=== PATIENT | female | born 1945 | race Caucasian/White ===

== ENCOUNTER 2018-09-22 10:50 | Inpatient (IN) | payer OTHER, MEDICARE ==
[~2018-09-22] VITALS: Ht 139.7 cm; Wt 86.2 kg
[~2018-09-22 10:50] MED LIST: CELE100C PO; CLOP75TA15 PO
--- NOTE | 2018-09-22 11:00 | NUR ---
PT DEDRICK FROM DAYCARE, C/O DIZZINESS AND WEAK, -KO, -CP, -SOB, PT IS AAOX3, NOT IN RESPIRATORY DISTRESS, KEPT RESTED AND COMFORTABLE, HOOKED TO MONITOR.
--- NOTE | 2018-09-22 11:10 | NUR ---
SEEN AND EXAMINED BY DR. GHOSH.
[2018-09-22] MEDS ORDERED: NITROGLYCERIN PACKET 1 GM PACKET ONE (11:22)
--- NOTE | 2018-09-22 11:28 | NUR ---
LABS DRAWNED AND SENT TO LAB. AWAITING RESULTS.
[2018-09-22] MEDS ORDERED: NITROGLYCERIN PACKET 1 GM PACKET TD ONE (11:30)
[2018-09-22 11:33] LABS: BASOPHILS # (AUTO) 0.1 /CMM (0.0-0.2); BASOPHILS % (AUTO) 1.2 % (0.0-2.0); EOSINOPHILS % (AUTO) 2.2 % (0.0-6.0); HEMATOCRIT 32 % (33-45); HEMOGLOBIN 10.7 g/dL (11.5-14.8); LYMPHOCYTES # (AUTO) 1.1 /CMM (0.8-4.8); LYMPHOCYTES % (AUTO) 17.2 % (20.0-44.0); MEAN CORPUSCULAR HGB CONC 34 g/dl (31.0-36.0); MEAN CORPUSCULAR VOLUME 86 fL (82-100); MONOCYTES # (AUTO) 0.4 /CMM (0.1-1.30); MONOCYTES % (AUTO) 5.9 % (2.0-12.0); NEUTROPHILS # (AUTO) 4.8 /CMM (1.8-8.9); NEUTROPHILS % (AUTO) 73.5 % (43.0-81.0); PLATELET COUNT (AUTO) 219 /CMM (150-450); RED BLOOD CELL COUNT(AUTO) 3.67 MIL/uL (4.0-5.2); WHITE BLOOD COUNT (AUTO) 6.5 K/uL (4.3-11.0)
[2018-09-22 11:45] LABS: CARBON DIOXIDE 31 mmol/L (21-32); CHLORIDE 100 mmol/L (98-107); POTASSIUM 3.9 mmol/L (3.5-5.1); SODIUM SERUM 135 mmol/L (136-145)
[2018-09-22 11:46] LABS: CALCIUM, SERUM 8.8 mg/dL (8.5-10.1); UREA NITROGEN, BLOOD 22 mg/dL (7-18)
[2018-09-22 11:55] LABS: ALANINE AMINOTRANSFERASE 18 U/L (12-78); ALKALINE PHOSPHATASE 93 U/L (46-116); ASPARTATE AMINOTRANSFERASE 10 U/L (15-37); BILIRUBIN,DIRECT 0.1 mg/dL (0.0-0.2); BILIRUBIN,TOTAL 0.5 mg/dL (0.2-1.0)
[2018-09-22 11:56] LABS: ALBUMIN 3.1 g/dL (3.4-5.0); TOTAL PROTEIN, SERUM 6.8 g/dL (6.4-8.2)
[2018-09-22 11:57] LABS: B-TYPE NATRIURETIC PEPTIDE 1279 PG/ML (0-125); GLUCOSE 414 mg/dL (74-106)
[2018-09-22] MEDS ORDERED: hydrALAZINE HCL IV 20 MG VIAL IV ONE (12:00)
[2018-09-22] MEDS ORDERED: hydrALAZINE HCL IV 20 MG VIAL ONE (12:03)
[2018-09-22] MEDS ORDERED: ASPIRIN 325 MG TABLET ONE (12:11)
[2018-09-22] MEDS ORDERED: INSULIN REGULAR, HUMAN 100 UNIT/ML 10 ML VIAL ONE (12:11)
[2018-09-22] MEDS ORDERED: FUROSEMIDE 20 MG/2 ML VIAL ONE (12:19)
[2018-09-22] MEDS ORDERED: ASPIRIN 325 MG TABLET PO ONE (12:30)
[2018-09-22] MEDS ORDERED: INSULIN REGULAR, HUMAN 100 UNIT/ML 10 ML VIAL IV ONE (12:30)
[2018-09-22] MEDS ORDERED: FUROSEMIDE 20 MG/2 ML VIAL IV ONE (12:30)
[2018-09-22] MEDS ORDERED: MELO-107 PO (12:50)
[2018-09-22] MEDS ORDERED: ACET-73 PO (12:50)
[2018-09-22] MEDS ORDERED: INSU100V10 SQ (12:50)
[2018-09-22] MEDS ORDERED: ATEN25TA PO (12:50)
[2018-09-22] MEDS ORDERED: FENO145T35 PO (12:50)
[2018-09-22] MEDS ORDERED: IBUP-2413 PO (12:50)
[2018-09-22] MEDS ORDERED: POTA8TAB8 PO (12:50)
[2018-09-22] MEDS ORDERED: LOPE-156 PO (12:50)
[2018-09-22] MEDS ORDERED: VALS1TAB54 PO (12:50)
[2018-09-22] MEDS ORDERED: ARIP10TA9 PO (12:50)
[2018-09-22] MEDS ORDERED: SITA100T PO (12:50)
[2018-09-22] MEDS ORDERED: CYAN500T4 PO (12:50)
[2018-09-22] MEDS ORDERED: ERGO500040 PO (12:50)
[2018-09-22] MEDS ORDERED: CARV12.52 PO (12:50)
[2018-09-22] MEDS ORDERED: MAG30ORA PO (12:50)
[2018-09-22] MEDS ORDERED: ATOR80TA PO (12:50)
[2018-09-22] MEDS ORDERED: NITR0.4T48 SL (12:50)
[2018-09-22] MEDS ORDERED: FURO20TA4 PO (12:50)
[2018-09-22] MEDS ORDERED: MECL-102 PO (12:50)
[2018-09-22] MEDS ORDERED: AMLO10TA7 PO (12:50)
[2018-09-22] MEDS ORDERED: ASPI-1169 PO (12:50)
[2018-09-22] MEDS ORDERED: OMEP1CAP25 PO (12:50)
[2018-09-22] MEDS ORDERED: NIAC500T2 PO (12:50)
[2018-09-22] MEDS ORDERED: CLOP75TA15 PO (12:54)
--- NOTE | 2018-09-22 12:55 | NUR ---
LEFT MESSAGE FOR DR STERLING
--- NOTE | 2018-09-22 13:47 | NUR ---
CALLED DR STERLING, WAS PAGED.
--- NOTE | 2018-09-22 14:11 | NUR ---
AWAITING ROOM FOR ADMISSION.
--- NOTE | 2018-09-22 14:12 | NUR ---
Unable to reach Dr. Lynch, [facility] group paged for admission.
--- NOTE | 2018-09-22 14:17 | NUR ---
PAGEAlex HERNANDEZ FOR ADMISSION OF THIS PATIENT
--- NOTE | 2018-09-22 14:34 | NUR ---
REPORT GIVEN TO SARA DUMONT FOR ILIA.
[2018-09-22 16:00] VITALS: BP 144/69
--- NOTE | 2018-09-22 16:15 | NUR ---
HOGSHEAD INSPECTOR NOTE RECEIVED PT. IN [facility] A&OX4. BREATHING UNLABORED ON ROOM AIR. PT. DENIES CHEST PAIN, BUT HAS NEW ONSET OF ABDOMINAL PAIN. VITALS WILL BE MEASURED. PT. WAS TRANSFERRED INTO BED SAFELY. NO NEW MD ORDERS GIVEN AT THIS TIME. INSTRUCTED PT. TO USE CALL LIGHT FOR ASSISTANCE. ALL NEEDS MET. WILL CONTINUE TO ASSESS AND MONITOR.
[2018-09-22 16:47] VITALS: BP 144/69
--- NOTE | 2018-09-22 18:00 | NUR ---
RN NOTES DISCUSSED WITH DR. STERLING PT. CONDITION, NEW ORDERS WERE GIVEN. MD WILL BE IN TO SEE PT. IN 1-2 HOURS.
[2018-09-22] MEDS ORDERED: MORPHINE SULFATE INJ 2 MG/ML DISP.SYRIN IV ONE (18:21)
[2018-09-22] MEDS ORDERED: MORPHINE SULFATE INJ 2 MG/ML DISP.SYRIN IV PRN (18:30)
[2018-09-22 18:50] LABS: AMYLASE 30 U/L (25-115); LIPASE 133 U/L (73-393)
[2018-09-22 18:54] LABS: CHOLESTEROL 264 mg/dL (<200); HDL CHOLESTEROL 35 mg/dL (40-60); LDL 166 mg/dL (0-99); TRIGLYCERIDES 356 mg/dL (30-150)
--- NOTE | 2018-09-22 19:30 | NUR ---
UPSCALE SECURITY OFFICER INITIAL NOTES Patient is awake, A/O x3, Divehi speaking, understand and speak Mozambican some. Stable oxygen saturation on RA. Sinus rhythm on the tele monitor HR 70. Abdomen rounded and firm, reports some discomfort, denies nausea, no vomiting. Home medication for review, will follow up with Dr. Phan. Maintained safety, will cont to monitor.
[2018-09-22 20:00] VITALS: BP 156/73
--- NOTE | 2018-09-22 20:01 | NUR ---
RN CLOSING NOTES PT. IS IN BED SITTING UP A&OX4. BREATHING UNLABORED ON ROOM AIR. PT. REPORTED ABDOMINAL PAIN HAS IMPROVED SINCE ARRIVING TO UNIT. PT. TOLERATED JELLO AND CRACKERS WELL. IV IS INTACT AND PATENT. NO S/S OF ACUTE DISTRESS. BED IS IN LOWEST, AND LOCKED POSITION. 2 SIDE RAILS UP, AND INSTRUCTED PT. TO USE CALL LIGHT FOR ASSISTANCE. NEW MD ORDERS WERE ADDED TO PPI. ENDORSED REPORT TO NURSE.
[2018-09-22 21:02] LABS: MAGNESIUM 1.6 mg/dL (1.8-2.4)
[2018-09-22] MEDS: BLOOD SUGAR DIAGNOSTIC 1 EACH STRIP IN SCH (21:41)
[2018-09-22] MEDS ORDERED: INSULIN DETEMIR 100 UNIT/ML CARTRIDGE SQ SCH (22:00)
[2018-09-22] MEDS ORDERED: INSULIN ASPART/LISPRO 100 UNIT/ML CARTRIDGE SQ ONE (22:00)
[2018-09-22] MEDS ORDERED: INSULIN LISPRO/ASPART 100 UNIT/ML CARTRIDGE SQ ONE (22:34)
[2018-09-22] MEDS ORDERED: INSULIN GLARGINE, 100 UNIT/ML CARTRIDGE SQ ONE (22:34)
[2018-09-22] MEDS: INSULIN GLARGINE, 100 UNIT/ML CARTRIDGE SQ SCH (22:41)
--- NOTE | 2018-09-22 22:42 | NUR ---
Elevated blood sugar 462mg/dl, notified Dr. Phan. Novolog 10mg SC x1 given, will reassess.
--- NOTE | 2018-09-22 23:17 | NUR ---
Low magnesium level 1.[address] Phan, ordered Magnesium 2gm IV daily x3 doses total of 6 grams IV. Repeat blood sugar 367mg/dl , is aware. Will cont to monitor.
[2018-09-22] MEDS: Magnesium 1GM/D5W 100ML PREMIX 100 ML IV SCH (23:29)
[2018-09-22] MEDS: ONDANSETRON HCL/PF 4 MG/2 ML VIAL IV PRN (23:56)
[2018-09-23] MEDS: MORPHINE SULFATE INJ 2 MG/ML DISP.SYRIN IV PRN ×3 (00:14→17:12)
[2018-09-23] MEDS: Magnesium 1GM/D5W 100ML PREMIX 100 ML IV SCH ×3 (00:24→19:44)
[2018-09-23 01:00] VITALS: BP 189/69
--- NOTE | 2018-09-23 01:00 | NUR ---
Elevated BP 189/[address] Phan, awaiting call back. Patient in bed, appears comfortable, sleeping. Will cont to monitor.
--- NOTE | 2018-09-23 01:51 | NUR ---
Patient is seen by Dr. Phan. Home medications reviewed by MD and faxed to pharmacy. Order place for Magnesium level, Iron level and UA.
[2018-09-23 04:00] VITALS: BP 185/82
[2018-09-23 04:15] VITALS: BP 185/82
[2018-09-23 05:36] VITALS: BP 177/70
[2018-09-23] MEDS: ONDANSETRON HCL/PF 4 MG/2 ML VIAL IV PRN ×2 (05:55→17:13)
--- NOTE | 2018-09-23 06:18 | NUR ---
BAND RIPSAW OPERATOR CLOSING NOTES Patient in bed, Sinus aaron on the tele monitor lows 35 to 64,Denies dizziness, no episode of syncope, no c/o chest pain. For consult today with Dr. De La Rosa/Cardio. Patient is currently NPO, for CT abdomen/pelvis with contrast today. For consult Dr. Padilla/GI. Magnesium supplemented last night. Abdominal pain managed by Morphine IV with intermittent relief. Blood glucose slowly trending down, MD is aware. BP still elevated 177/70, denies headache, no vomiting, awaiting Dr. Phan call back. Maintained safety, will endorse to oncoming RN.
[2018-09-23 06:38] LABS: CALCIUM, SERUM 8.9 mg/dL (8.5-10.1); CARBON DIOXIDE 30 mmol/L (21-32); CHLORIDE 98 mmol/L (98-107); CREATININE 0.9 mg/dL (0.6-1.3); GLUCOSE 329 mg/dL (74-106); MAGNESIUM 2.4 mg/dL (1.8-2.4); POTASSIUM 3.9 mmol/L (3.5-5.1); SODIUM SERUM 133 mmol/L (136-145); UREA NITROGEN, BLOOD 23 mg/dL (7-18)
[2018-09-23 06:45] LABS: BASOPHILS # (AUTO) 0.1 /CMM (0.0-0.2); EOSINOPHILS % (AUTO) 1.7 % (0.0-6.0); HEMATOCRIT 32 % (33-45); LYMPHOCYTES % (AUTO) 14.8 % (20.0-44.0); MEAN CORPUSCULAR HGB CONC 35 g/dl (31.0-36.0); MEAN CORPUSCULAR VOLUME 83 fL (82-100); MONOCYTES # (AUTO) 0.3 /CMM (0.1-1.30); MONOCYTES % (AUTO) 4.8 % (2.0-12.0); NEUTROPHILS # (AUTO) 5.2 /CMM (1.8-8.9); NEUTROPHILS % (AUTO) 77.7 % (43.0-81.0); PLATELET COUNT (AUTO) 254 /CMM (150-450); RED BLOOD CELL COUNT(AUTO) 3.84 MIL/uL (4.0-5.2); WHITE BLOOD COUNT (AUTO) 6.7 K/uL (4.3-11.0)
[2018-09-23 07:06] LABS: AMYLASE 27 U/L (25-115); LIPASE 91 U/L (73-393)
--- NOTE | 2018-09-23 07:24 | NUR ---
Received phone call from Dr. Phan, regarding elevated BP, orders place. MD is aware of elevated blood sugar, per MD no sliding scale, cont current orders. Endorsed to oncoming RN.
--- NOTE | 2018-09-23 07:46 | NUR ---
DRIVER EDUCATION ROAD INSTRUCTOR OPENING NOTES PATIENT IS NAUSEOUS AND VOMITING. OFFERED ZOFRAN BUT PATIENT REFUSED. BED RAILS UPX2, LOCKED AND AT LOWEST POSITION. IV LINE IS INTACT AND PATENT. CALL LIGHT IS WITHIN REACH. WILL CONTINUE TO MONITOR.
[2018-09-23] MEDS: BLOOD SUGAR DIAGNOSTIC 1 EACH STRIP IN SCH ×3 (07:54→22:21)
[2018-09-23 08:00] VITALS: BP 146/62
[2018-09-23] MEDS ORDERED: CLONIDINE HCL 0.1MG/24H PTWK 1 EA PATCH TD SCH (08:00)
[2018-09-23] MEDS: INSULIN ASPART/LISPRO 100 UNIT/ML CARTRIDGE SQ SCH ×4 (08:19→17:00)
[2018-09-23] MEDS: AMLODIPINE BESYLATE 5 MG TABLET PO SCH ×2 (09:00→21:00)
[2018-09-23] MEDS ORDERED: ATENOLOL 25 MG TABLET PO SCH (09:00)
[2018-09-23] MEDS ORDERED: CLOPIDOGREL BISULFATE 75 MG TABLET PO SCH (09:00)
[2018-09-23] MEDS ORDERED: AMLODIPINE BESYLATE 10 MG TABLET PO SCH (09:00)
[2018-09-23] MEDS: POTASSIUM CHLORIDE 10 MEQ TABLET.SA PO SCH (09:00)
[2018-09-23] MEDS: FENOFIBRATE NANOCRYS (145 MG) 145 MG TABLET PO SCH (09:00)
[2018-09-23] MEDS ORDERED: LOPERAMIDE HCL (2 MG CAP) 2 MG CAPSULE PO PRN (09:00)
[2018-09-23] MEDS: CARVEDILOL 12.5 MG TABLET PO SCH ×2 (09:00→17:00)
[2018-09-23] MEDS ORDERED: NITROGLYCERIN 0.4 MG/TAB BOTTLE SL PRN (09:00)
[2018-09-23] MEDS: CYANOCOBALAMIN 500 MCG TABLET PO SCH (09:00)
[2018-09-23] MEDS: VALSARTAN 80 MG TABLET PO SCH (09:00)
[2018-09-23] MEDS: ARIPIPRAZOLE 5 MG TABLET PO SCH (09:00)
[2018-09-23] MEDS ORDERED: ASPIRIN 81 MG TAB.CHEW PO SCH (09:00)
[2018-09-23] MEDS ORDERED: HOME MED MISCELLANEOUS XX SCH (09:00)
[2018-09-23] MEDS: FUROSEMIDE 20 MG TABLET PO SCH (09:00)
[2018-09-23] MEDS ORDERED: PANTOPRAZOLE 40 MG TABLET.DR PO SCH (09:08)
[2018-09-23] MEDS ORDERED: HYDROCHLOROTHIAZIDE 25 MG TABLET PO SCH (09:14)
[2018-09-23] MEDS ORDERED: ACETAMINOPHEN 325 MG TABLET PO PRN (09:30)
[2018-09-23] MEDS ORDERED: CT SWABBABLE VALVE TRANS SET 1 EA INFUS.SET MC ONE (13:51)
[2018-09-23] MEDS ORDERED: IV NS 0.9% 250 ML IV ONE (13:51)
[2018-09-23] MEDS ORDERED: IOHEXOL-300 100 ML VIAL IV ONE (13:51)
[2018-09-23 17:10] LABS: IRON, SERUM 49 ug/dl (50-175); TOTAL IRON BINDING CAPACITY 277 ug/dl (250-450)
[2018-09-23 17:22] LABS: FERRITIN 83 ng/mL (8-388)
--- NOTE | 2018-09-23 19:15 | NUR ---
STEREO EQUIPMENT SALESPERSON NOTES RECEIVED ON BED A/O X3,BREATHING REGULAR,NOT IN ANY FORM DISTRESS.FAMILY MEMBERS AT BEDSIDE.SALINE LOCK RIGHT HAND INTACT AND PATENT.NPO STATUS ORDERED.PER REPORT BY DAY NURSE LAURI,BLOOD SUGAR WAS 318,HE SPOKE WITH DR STERLING WITH ORDER TO GIVE NOVOLOG/HUMALOG 10 ONCE.EXPLAINED TO FAMILY MEMBERS AND THEY UNDERSTAND.WILL CONTINUE TO MONITOR STATUS.CALL LIGHT IN REACH,NEEDS ANTICIPATED.
[2018-09-23] MEDS ORDERED: DEXTROSE 50%-WATER 50 ML DISP.SYRIN IV PRN (19:30)
[2018-09-23] MEDS ORDERED: INSULIN ASPART/LISPRO 100 UNIT/ML CARTRIDGE SQ ONE (19:30)
--- NOTE | 2018-09-23 19:30 | NUR ---
TURNER AND FORMER AUTOMATIC NOTES SR-72 ON TELE MONITOR.ON BED A/O AX3,SPEAK ARMENIANMRELATIVES AT BEDSIDE
--- NOTE | 2018-09-23 19:44 | NUR ---
VENUE ATTENDANT NOTES SECOND BAG OF MAGNESIUM 1GM IV HUNG AND INFUSED VIA IV PUMP OVER AN HOUR
[2018-09-23] MEDS: METOCLOPRAMIDE HCL 10 MG/2 ML VIAL IV PRN (19:50)
--- NOTE | 2018-09-23 19:50 | NUR ---
USER EXPERIENCE ANALYST NOTES FEELING NAUSEATED,MEDICATED WITH REGLAN 5MG IV ORDERED.
[2018-09-23 20:00] VITALS: BP 160/63
--- NOTE | 2018-09-23 21:00 | NUR ---
MANAGER R D NOTES BP 160/63,NORVASC 5MG PO HELD,NPO STATUS,ON CATAPRES PATCH.
[2018-09-23] MEDS: INSULIN DETEMIR 100 UNIT/ML CARTRIDGE SQ SCH (22:00)
[2018-09-23] MEDS: INSULIN GLARGINE, 100 UNIT/ML CARTRIDGE SQ SCH (22:00)
[2018-09-23] MEDS: ATORVASTATIN 40 MG TABLET PO SCH (22:00)
--- NOTE | 2018-09-23 22:00 | NUR ---
STATISTICAL GENETICIST NOTES ACCU-CHECK BLOOD SUGAR CHECK 179,REFUSED ANOTHER INSULIN.NPO STATUS.
[2018-09-24] VITALS (7 sets, daily range): BP systolic 132–181; BP diastolic 60–86
--- NOTE | 2018-09-24 01:00 | NUR ---
PATIENT SAFETY TECH NOTES BP 173/69,PULSE-69,C/O RIGHT UPPER ABDOMINAL PAIN,NO IV PAIN MEDS,ON CATAPRES PATCH,NPO STATUS.MD STERLING WAS PAGE,LEAVE MESSAGE ON VOICE MAIL,AWAITING TO CALL BACK.CHARGE NURSE AWARE.
--- NOTE | 2018-09-24 03:00 | NUR ---
REHABILITATION AIDE NOTES SLEEPING AT THIS TIME,KEPT WARM AND COMFORTABLE.
--- NOTE | 2018-09-24 05:00 | NUR ---
MS RN NOTES AWAKE,SITTING ON EDGE OF BED,CLAIMED MID UPPER ABDOMINAL PAIN 5/10 ON PAIN SCALE,NPO STATUS.BP 189/82,PULSE 64.DR STERLING ON THE PHONE AT THIS TIME,MADE AWARE OF PATIENT STATUS,WITH ORDERS NOTED AND CARRIED OUT.
--- NOTE | 2018-09-24 05:15 | NUR ---
BEHAVIORAL SERVICES TECH NOTES FEELING NAUSEATED,MEDICATED WITH REGLAN 5MG IV ORDERED.
[2018-09-24] MEDS ORDERED: CLONIDINE HCL 0.2MG/24H PTWK 1 EA PATCH TD ONE (05:22)
[2018-09-24] MEDS ORDERED: hydrALAZINE HCL IV 20 MG VIAL ONE (05:23)
--- NOTE | 2018-09-24 05:24 | NUR ---
COMPACTING MACHINE OPERATOR/TENDER NOTES BLOOD PRESSURE 189/82,MEDICATED WITH HYDRALAZINE 2.5MG IV ORDERED.
--- NOTE | 2018-09-24 05:25 | NUR ---
CAR RENTAL SERVICE ATTENDANT NOTES BP 189/82,CATAPRES PATCH 0.2MG APPLIED TO LEFT UPPER BACK.DOSE CHANGED BY DR STERLING FROM 0.1MG/24H TO 0.2 MG/24 NOTED ORDERED.
--- NOTE | 2018-09-24 06:15 | NUR ---
TRANSPORTATION WORKER NOTES ACCU-CHECK 196,NO INSULIN COVERAGE.OFFERED INSULIN SLIDING SCALE BUT REFUSED.
[2018-09-24] MEDS: BLOOD SUGAR DIAGNOSTIC 1 EACH STRIP IN SCH ×4 (06:35→21:44)
--- NOTE | 2018-09-24 07:00 | NUR ---
DIVISION OFFICER WEAPONS DEPARTMENT NOTES STILL WITH IN OFF OFF MID UPPER ABDOMINAL PAIN.NPO STATUS.PER G,CONSIDER COLONOSCOPY.EGD PER GWYN CHICAS,WILL DISCUSS WITH DR COATS NO ACUTE DISTRESS.WILL ENDORSE TO DAY NURSE FOR ILIA.
--- NOTE | 2018-09-24 07:30 | NUR ---
SOLAR ENERGY SYSTEMS ENGINEER. PT RECEIVED SMILEY NICHOLS SPEAKING WITH RN FOR TRANSLATION. PT TOLERATING ROOM AIR WITHOUT DISTRESS. PT DENIES PAIN OR NAUSEA AT THIS TIME. PT WITH IVC AT R HAND INTACT AND SALINE FLUSH PATENT. PT ENDORSED WITH DIZZINESS OVERNIGHT AND BSC NOW PLACED FOR SAFETY AND BED ALARM ENGAGED. WILL FOLLOW UP WITH MD R/T NPO STATUS AND POC. BED IN LOWEST LOCKED POSITION WITH HANDRIALSX2 AND CALL ROBERTO AND BELONGINGS WITHIN REACH.
[2018-09-24] MEDS ORDERED: CLONIDINE HCL 0.2MG/24H PTWK 1 EA PATCH TD SCH (08:30)
[2018-09-24] MEDS ORDERED: hydrALAZINE HCL IV 20 MG VIAL IV PRN ×2 (09:00→15:00)
--- NOTE | 2018-09-24 10:15 | NUR ---
DIRECTOR NURSERY SCHOOL. MD Sheri STERLING ORDERING CLEAR LIQUIDS DIET, PANTOPRAZOLE CONVERTED TO IV AND F/UP WITH GI TEAM R/T TO PENDING PROCEDURE. ORDERS PLACED AND GI CONTACTED.
--- NOTE | 2018-09-24 10:30 | NUR ---
PT WITH EPISODE OF BRADYCARDIA 30-40, WHILST ON TOILET. PT NOW REPORTING NO BMX3 DAYS AND CONSTIPATION. INSTRUCTED NOT TO STRAIN ON TOILET AND DOVETAILER TO ESCORT. PRUNE JUICE ADMINISTERED.
[2018-09-24] MEDS: VALSARTAN 80 MG TABLET PO SCH (10:41)
[2018-09-24] MEDS: CYANOCOBALAMIN 500 MCG TABLET PO SCH (10:42)
[2018-09-24] MEDS: FUROSEMIDE 20 MG TABLET PO SCH (10:43)
[2018-09-24] MEDS: FENOFIBRATE NANOCRYS (145 MG) 145 MG TABLET PO SCH (10:43)
[2018-09-24] MEDS: POTASSIUM CHLORIDE 10 MEQ TABLET.SA PO SCH (10:43)
[2018-09-24] MEDS: ARIPIPRAZOLE 5 MG TABLET PO SCH (10:45)
[2018-09-24] MEDS: METOCLOPRAMIDE HCL 10 MG/2 ML VIAL IV PRN (10:49)
[2018-09-24] MEDS: CARVEDILOL 12.5 MG TABLET PO SCH ×2 (10:55→17:49)
[2018-09-24] MEDS: AMLODIPINE BESYLATE 5 MG TABLET PO SCH ×2 (10:55→21:43)
--- NOTE | 2018-09-24 11:00 | NUR ---
MED NOTES. ENDORSED WITH NEW CATAPRESS PATCH BUT NOT SCANNED R/T COMPUTERS BEING DOWN. SCHEDULED PATCH HELD.
[2018-09-24] MEDS: INSULIN ASPART/LISPRO 100 UNIT/ML CARTRIDGE SQ SCH ×3 (11:05→17:43)
[2018-09-24] MEDS: PANTOPRAZOLE 40 MG VIAL IV SCH (12:36)
[2018-09-24] MEDS: INSULIN REGULAR, HUMAN 100 UNIT/ML 3 ML VIAL SQ PRN ×3 (12:40→21:45)
[2018-09-24] MEDS ORDERED: ASPIRIN 81 MG TAB.CHEW PO ONE (14:00)
[2018-09-24] MEDS ORDERED: CLOPIDOGREL BISULFATE 75 MG TABLET PO ONE (14:00)
[2018-09-24] MEDS ORDERED: PEG 3350/NA SULF,BICARB,CL/KCL 4,000 ML BOTTLE PO ONE (15:00)
[2018-09-24] MEDS ORDERED: MAGNESIUM CITRATE 296 ML BOTTLE PO ONE (15:00)
[2018-09-24] MEDS ORDERED: NA PHOS,M-B/NA PHOS,DI-BA 1 EA ENEMA RC PRN (15:00)
[2018-09-24] MEDS: MECLIZINE HCL 25 MG TABLET PO PRN (15:27)
--- NOTE | 2018-09-24 15:35 | NUR ---
PT VOMITING AFTER MAG CITRATE. ENCOURAGED TO DRINK GOLYTELY SLOWLY.
[2018-09-24] MEDS: ONDANSETRON HCL/PF 4 MG/2 ML VIAL IV PRN (15:43)
--- NOTE | 2018-09-24 15:45 | NUR ---
PRN ANTI EMETIC AND ANTI VERT ADMINISTERED FOR DIZZINESS, N&V.
[2018-09-24] MEDS: Magnesium 1GM/D5W 100ML PREMIX 100 ML IV SCH ×2 (15:54→15:55)
--- NOTE | 2018-09-24 16:30 | NUR ---
PT REFUSING GOLYTLEY PREP, GI TIRE BAGGER GELA AWARE. MD STERLING NOT RETURNING CALLS.
--- NOTE | 2018-09-24 18:20 | NUR ---
EVS ATTENDANT. PT TOLERATING ROOM AIR WITHOUT DISTRESS. PT DENIES PAIN AND INTERMITTENT NAUSEA. NO DIZZINESS AT THIS TIME. PT WITH IVC AT R HAND INTACT AND SL. PT REFUSING GOLYTELY. BSC AND BED ALARM ENGAGED. BED IN LOWEST LOCKED POSITION WITH HANDRIALSX2 AND CALL ROBERTO AND BELONGINGS WITHIN REACH. WILL ENDORSE TO NIGHT NURSE AT BEDSIDE FOR ILIA.
--- NOTE | 2018-09-24 19:30 | NUR ---
TELE/RN NOTES RECEIVED PT. LYING IN BED. PT. IS AWAKE, ALERT AND ORIENTED X3. BREATHING EVEN AND UNLABORED ON ROOM AIR. NO SOB, RESPIRATORY DISTRESS OR COMPLAINTS OF PAIN NOTED AT THIS TIME. PT. WITH EXTERNAL INVENTORY AUDIT CLERK PRESENT AND INTACT. CURRENT RHYTHM = SINUS RHYTHM HR 72. PT. WITH RIGHT HAND 24 GAUGE IV SALINE LOCK PRESENT, PATENT AND INTACT. PT. WITH FAMILY MEMBERS PRESENT AT BEDSIDE. PER DAYSHIFT NURSE PT. IS TO BE NPO AFTER MIDNIGHT PENDING EGD/COLONOSCOPY TOMORROW. PT. REFUSING BOWEL PREP MEDICATION, GABE, PER DAYSHIFT NURSE HOME SECURITY PROFESSIONAL DIAN AWARE. BED LOCKED AND IN LOWEST POSITION, SIDE RAILS UP X3, BED ALARM ON, CALL LIGHT WITHIN REACH.
[2018-09-24 20:49] LABS: OCCULT BLOOD STOOL NEGATIVE (NEGATIVE)
[2018-09-24] MEDS: ATORVASTATIN 40 MG TABLET PO SCH (21:42)
[2018-09-24] MEDS: INSULIN GLARGINE, 100 UNIT/ML CARTRIDGE SQ SCH (21:45)
[2018-09-24] MEDS: INSULIN DETEMIR 100 UNIT/ML CARTRIDGE SQ SCH (21:45)
[2018-09-25] VITALS: BP 133/57
[2018-09-25] MEDS: METOCLOPRAMIDE HCL 10 MG/2 ML VIAL IV PRN (02:17)
--- NOTE | 2018-09-25 02:17 | NUR ---
INFECTION CONTROL SPECIALIST NOTES FEELING NAUSEATED,MEDICATED WITH REGLAN 10MG SLOW IV PUSH ORDERED.
--- NOTE | 2018-09-25 02:24 | NUR ---
COMMIS CHEF NOTES C/O HEADACHE,BP 180/84,PULSE-71,MEDICATED WITH HYDRALAZINE 10MG IV ORDERED FOR SBP>160.WILL CONTINUE TO MONITOR.
[2018-09-25 04:00] VITALS: BP 134/77
--- NOTE | 2018-09-25 06:40 | NUR ---
TELE/RN NOTES PT. IS SITTING UP IN BED RESTING. BREATHING EVEN AND UNLABORED ON ROOM AIR. NO SOB, RESPIRATORY DISTRESS OR COMPLAINTS OF PAIN NOTED AT THIS TIME. PT. WITH EXTERNAL TESTING MANAGER PRESENT AND INTACT. CURRENT RHYTHM = SINUS RHYTHM HR 70. PT. WITH RIGHT HAND 24 GAUGE IV SALINE LOCK PRESENT, PATENT AND INTACT. PT. HAS BEEN NPO SINCE MIDNIGHT PENDING EGD TODAY. ALL PT. NEEDS MET. CONSENT SIGNED AND PLACED IN PT. CHART. BED LOCKED AND IN LOWEST POSITION, SIDE RAILS UP X3, BED ALARM ON, CALL LIGHT WITHIN REACH. WILL ENDORSE TO DAYSHIFT NURSE FOR CONTINUITY OF CARE.
[2018-09-25] MEDS: BLOOD SUGAR DIAGNOSTIC 1 EACH STRIP IN SCH ×4 (06:56→22:08)
--- NOTE | 2018-09-25 07:30 | NUR ---
packing machine inspector Opening Notes Patient awake, resting in bed. Alert and oriented x3, Ukrainian speaking. No complaints of dizziness or pain at this time. Respirations even and unlabored on room air, no acute distress noted. External coordinator of rehabilitation services, current rhythm sinus rhythm at 71 bpm. Peripheral IV to the right hand 24 gauge, intact, patent and saline locked. Patient currently NPO since midnight for EGD today. Updated patient on current plan of care and safety meaures. Safety and fall precautions in place: bed in lowest and locked position, side rails up x2, bed alarm on, call light and personal possessions within reach. Patient verbalized understanding. Will continue to monitor and intervene as needed.
[2018-09-25 07:34] LABS: BASOPHILS # (AUTO) 0.1 /CMM (0.0-0.2); BASOPHILS % (AUTO) 0.9 % (0.0-2.0); EOSINOPHILS % (AUTO) 1.1 % (0.0-6.0); HEMATOCRIT 34 % (33-45); HEMOGLOBIN 11.8 g/dL (11.5-14.8); LYMPHOCYTES # (AUTO) 1.2 /CMM (0.8-4.8); LYMPHOCYTES % (AUTO) 16.9 % (20.0-44.0); MEAN CORPUSCULAR HGB CONC 34 g/dl (31.0-36.0); MEAN CORPUSCULAR VOLUME 84 fL (82-100); MONOCYTES # (AUTO) 0.3 /CMM (0.1-1.30); MONOCYTES % (AUTO) 4.7 % (2.0-12.0); NEUTROPHILS # (AUTO) 5.4 /CMM (1.8-8.9); NEUTROPHILS % (AUTO) 76.4 % (43.0-81.0); PLATELET COUNT (AUTO) 258 /CMM (150-450)
[2018-09-25 07:45] LABS: ALANINE AMINOTRANSFERASE 13 U/L (12-78); ALBUMIN 3.3 g/dL (3.4-5.0); ALKALINE PHOSPHATASE 87 U/L (46-116); ASPARTATE AMINOTRANSFERASE 12 U/L (15-37); BILIRUBIN,TOTAL 0.7 mg/dL (0.2-1.0); CALCIUM, SERUM 8.8 mg/dL (8.5-10.1); CARBON DIOXIDE 31 mmol/L (21-32); CHLORIDE 98 mmol/L (98-107); CREATININE 0.9 mg/dL (0.6-1.3); GLUCOSE 237 mg/dL (74-106); MAGNESIUM 2.3 mg/dL (1.8-2.4); POTASSIUM 3.5 mmol/L (3.5-5.1); SODIUM SERUM 136 mmol/L (136-145); TOTAL PROTEIN, SERUM 6.9 g/dL (6.4-8.2); UREA NITROGEN, BLOOD 20 mg/dL (7-18)
[2018-09-25 07:59] LABS: IRON, SERUM 56 ug/dl (50-175)
[2018-09-25 08:00] VITALS: BP 151/75
[2018-09-25] MEDS: CYANOCOBALAMIN 500 MCG TABLET PO SCH (08:55)
[2018-09-25] MEDS: FENOFIBRATE NANOCRYS (145 MG) 145 MG TABLET PO SCH (08:56)
[2018-09-25] MEDS: POTASSIUM CHLORIDE 10 MEQ TABLET.SA PO SCH (09:00)
[2018-09-25] MEDS: ARIPIPRAZOLE 5 MG TABLET PO SCH (09:00)
[2018-09-25] MEDS: AMLODIPINE BESYLATE 5 MG TABLET PO SCH ×2 (09:00→21:51)
[2018-09-25] MEDS: INSULIN ASPART/LISPRO 100 UNIT/ML CARTRIDGE SQ SCH ×3 (09:00→17:23)
[2018-09-25] MEDS: VALSARTAN 80 MG TABLET PO SCH (09:00)
[2018-09-25] MEDS: FUROSEMIDE 20 MG TABLET PO SCH (09:00)
[2018-09-25] MEDS: PANTOPRAZOLE 40 MG VIAL IV SCH (09:17)
--- NOTE | 2018-09-25 11:00 | NUR ---
Patient transferred to OR via bed, in stable condition, for EGD procedure. Vital signs stable. Endorsed care to transport. Cell phone and earrings in unit safe until patient return.
[2018-09-25] MEDS ORDERED: ANESTHESIA TRAY IN PYXIS 1 EA TRAY MC ONE (12:14)
--- NOTE | 2018-09-25 13:00 | NUR ---
Patient returned to room from EGD, in stable condition. Vital signs stable. Will continue to monitor as needed.
[2018-09-25 13:15] VITALS: BP 150/68
[2018-09-25 16:08] VITALS: BP 152/57
[2018-09-25] MEDS: CARVEDILOL 12.5 MG TABLET PO SCH (17:22)
[2018-09-25] MEDS: INSULIN REGULAR, HUMAN 100 UNIT/ML 3 ML VIAL SQ PRN ×2 (17:24→21:58)
--- NOTE | 2018-09-25 18:56 | NUR ---
MS RN Closing Notes Patient asleep, resting in bed. Alert and oriented x3, Iranian speaking. No complaints of dizziness or pain at this time. Respirations even and unlabored on room air, no acute distress noted. Peripheral IV to the right hand 24 gauge, intact, patent and saline locked. Tolerating clear liquid diet well, advancing as tolerated as ordered. Updated patient and family on current plan of care and safety measures. No acute events this shift. Safety and fall precautions in place: bed in lowest and locked position, side rails up x2, bed alarm on, call light and personal possessions within reach. Patient verbalized understanding. Will endorse to production supervisor off shift RN for continuity of care.
--- NOTE | 2018-09-25 19:43 | NUR ---
RN OPENING NOTES RECEIVED REPORT FROM DEVYNMNNACHO MCNEILL. FOUND Pt RESTING IN BED. FAMILY VISITING AT BEDSIDE. RESPIRATIONS EVEN AND UNLABORED. NO S/S OF ACUTE DISTRESS OR SOB NOTED. PER REPORT Pt IS A/OX4, GEORGIAN SPEAKING, BUT UNDERSTANDS SOME CHINESE. IV ACCESS ON [facility] #24G, SL. SAFETY MEASURES IN PLACE. BED LOW, LOCKED, HOB ELEVATED, SIDE RAILS UP, CALL LIGHT AND BEDSIDE TABLE WITHIN REACH. BED ALARM ON. WILL CONTINUE TO MONITOR Pt's CONDITION AND SAFETY THROUGHOUT THE NIGHT.
[2018-09-25 20:00] VITALS: BP 124/48
[2018-09-25] MEDS: ATORVASTATIN 40 MG TABLET PO SCH (21:52)
[2018-09-25] MEDS ORDERED: INSULIN GLARGINE, 100 UNIT/ML CARTRIDGE SQ SCH (22:00)
--- NOTE | 2018-09-25 22:01 | NUR ---
RN NOTES HS ACCUCHECK BG 283. ADMINISTERED SCHEDULED LANTUS 34UN. GAVE ADDITIONAL COVERAGE 6UN OF REGULAR INSULIN. Pt IS EATING. SNACKS AT BEDSIDE. WILL CONTINUE TO MONITOR Pt's BG LEVELS.
[2018-09-26] MEDS: BLOOD SUGAR DIAGNOSTIC 1 EACH STRIP IN SCH ×2 (06:21→12:14)
[2018-09-26] MEDS: INSULIN REGULAR, HUMAN 100 UNIT/ML 3 ML VIAL SQ PRN ×2 (06:28→12:21)
--- NOTE | 2018-09-26 06:30 | NUR ---
RN NOTES AC ACCUCHECK BG 216. ADMINISTERED 4UN OF INSULIN PER SLIDING SCALE.
--- NOTE | 2018-09-26 06:50 | NUR ---
RN CLOSING NOTES NO SIGNIFICANT CHANGES IN Pt's CONDITION. Pt REMAINS STABLE PER BASELINE. Pt IS RESTING IN BED. NO S/S OF ACUTE DISTRESS OR SOB NOTED DURING THE NIGHT. NO C/O N/V DURING THE SHIFT. ALL NEEDS MET AND ATTENDED TO. SAFETY MEASURES IN PLACE. BED LOW, LOCKED, HOB ELEVATED, SIDE RAILS UP, CALL LIGHT WITHIN REACH, AND BEDSIDE TABLE WITHIN REACH. WILL ENDORSE TO DAYSHIFT RN FOR Pt's ILIA.
[2018-09-26 06:54] LABS: BASOPHILS # (AUTO) 0.1 /CMM (0.0-0.2); BASOPHILS % (AUTO) 1.1 % (0.0-2.0); EOSINOPHILS % (AUTO) 2.4 % (0.0-6.0); HEMATOCRIT 34 % (33-45); HEMOGLOBIN 11.7 g/dL (11.5-14.8); LYMPHOCYTES # (AUTO) 1.5 /CMM (0.8-4.8); LYMPHOCYTES % (AUTO) 23.9 % (20.0-44.0); MEAN CORPUSCULAR HGB CONC 34 g/dl (31.0-36.0); MEAN CORPUSCULAR VOLUME 84 fL (82-100); MONOCYTES # (AUTO) 0.5 /CMM (0.1-1.30); MONOCYTES % (AUTO) 7.6 % (2.0-12.0); NEUTROPHILS # (AUTO) 4.2 /CMM (1.8-8.9); PLATELET COUNT (AUTO) 250 /CMM (150-450); RED BLOOD CELL COUNT(AUTO) 4.07 MIL/uL (4.0-5.2); WHITE BLOOD COUNT (AUTO) 6.4 K/uL (4.3-11.0)
[2018-09-26 07:18] LABS: CARBON DIOXIDE 32 mmol/L (21-32); CHLORIDE 101 mmol/L (98-107); CREATININE 0.9 mg/dL (0.6-1.3); GLUCOSE 225 mg/dL (74-106); MAGNESIUM 2.2 mg/dL (1.8-2.4); PHOSPHORUS 3.6 mg/dL (2.5-4.9); POTASSIUM 3.9 mmol/L (3.5-5.1); SODIUM SERUM 139 mmol/L (136-145); UREA NITROGEN, BLOOD 26 mg/dL (7-18)
--- NOTE | 2018-09-26 07:36 | NUR ---
MS RN OPENING NOTES RECEIVED PATIENT AWAKE, ALERT AND ORIENTED X3. ON ROOM AIR, WITH NO SOB NOTED. ON IV SL TO RIGHT HAND 24G, INTACT AND PATENT. SAFETY MEASURES IN PLACE. BED IN LOW LOCKED POSITION WITH SR X2. PT ABLE TO ASK FOR ASSISTANCE. WILL MONITOR FOR N/V EPISODES, NO EPISODE NOTED AT THIS TIME. WILL CONTINUE TO MONITOR.
[2018-09-26 08:00] VITALS: BP 158/84
[2018-09-26] MEDS ORDERED: VALS80TA2 PO (08:42)
[2018-09-26] MEDS ORDERED: Nitroglycerin SL (08:42)
[2018-09-26] MEDS: PANTOPRAZOLE 40 MG VIAL IV SCH (08:54)
[2018-09-26] MEDS: POTASSIUM CHLORIDE 10 MEQ TABLET.SA PO SCH (08:54)
[2018-09-26] MEDS: FUROSEMIDE 20 MG TABLET PO SCH (08:55)
[2018-09-26] MEDS: AMLODIPINE BESYLATE 5 MG TABLET PO SCH (08:55)
[2018-09-26] MEDS: FENOFIBRATE NANOCRYS (145 MG) 145 MG TABLET PO SCH (08:55)
[2018-09-26] MEDS: ARIPIPRAZOLE 5 MG TABLET PO SCH (08:55)
[2018-09-26] MEDS: VALSARTAN 80 MG TABLET PO SCH (08:56)
[2018-09-26 08:58] VITALS: BP 158/84
[2018-09-26] MEDS: CARVEDILOL 12.5 MG TABLET PO SCH (08:58)
[2018-09-26] MEDS ORDERED: ASPIRIN 81 MG TAB.CHEW PO SCH (09:00)
[2018-09-26] MEDS ORDERED: CLOPIDOGREL BISULFATE 75 MG TABLET PO SCH (09:00)
[2018-09-26] MEDS: CYANOCOBALAMIN 500 MCG TABLET PO SCH (09:07)
[2018-09-26] MEDS: INSULIN ASPART/LISPRO 100 UNIT/ML CARTRIDGE SQ SCH ×2 (09:08→12:22)
[2018-09-26] MEDS: MECLIZINE HCL 25 MG TABLET PO PRN (13:26)
--- NOTE | 2018-09-26 13:59 | NUR ---
MS COMMISSARY CLERK NOTES PATIENT A/O X4, IN STABLE CONDITION. ON ROOM AIR, RESPIRATION EVEN. NOT IN ANY DISTRESS NOTED. MECLIZINE GIVEN PER PT REQUEST BEFORE LEAVING THE UNIT. TO DISCHARGE HOME WITH [facility], MACHINED PARTS QUALITY INSPECTOR MADE AWARE AND FAXED INFORMATION OF PT. SKIN INTACT. REMOVED PIV, DRY DRESSING APPLIED TO RIGHT HAND. REVIEWED AND SIGNED DISCHARGE INSTRUCTIONS WITH THE PT. ALL NEEDS AND CARE PROVIDED. ALL BELONGINGS ACCOUNTED FOR AND SIGNED. MD AND CHARGE NURSE AWARE. PT LEFT THE UNIT AT 1355, ESCORTED TO THE LOBBY.
== END 2018-09-26 13:50 | disposition home health service (06) | DRG 253 ==
LOC: PART 10:59 → TELE 14:23 → MED 09-25 10:09
PROVIDERS: ADMIT Family Medicine; ATTEND Family Medicine
PROC: 0DB78ZX Excision of Stomach, Pylorus, Via Natural or Artificial Opening Endoscopic, Diagnostic (ICD-10-PCS; principal; 2018-09-25)
DX: K92.2 Gastrointestinal hemorrhage, unspecified (principal); E11.21 Type 2 diabetes mellitus with diabetic nephropathy; E11.40 Type 2 diabetes mellitus with diabetic neuropathy, unspecified; R06.00 Dyspnea, unspecified; I31.3 Pericardial effusion (noninflammatory); E66.01 Morbid (severe) obesity due to excess calories; K21.0 Gastro-esophageal reflux disease with esophagitis; E11.51 Type 2 diabetes mellitus with diabetic peripheral angiopathy without gangrene; E11.43 Type 2 diabetes mellitus with diabetic autonomic (poly)neuropathy; E11.65 Type 2 diabetes mellitus with hyperglycemia; E11.9 Type 2 diabetes mellitus without complications; I10 Essential (primary) hypertension; K44.9 Diaphragmatic hernia without obstruction or gangrene; E11.22 Type 2 diabetes mellitus with diabetic chronic kidney disease; Z68.41 Body mass index [BMI] 40.0-44.9, adult; I50.32 Chronic diastolic (congestive) heart failure; M19.90 Unspecified osteoarthritis, unspecified site; E78.5 Hyperlipidemia, unspecified; M81.0 Age-related osteoporosis without current pathological fracture; Z91.81 History of falling; D63.8 Anemia in other chronic diseases classified elsewhere; F03.90 Unspecified dementia, unspecified severity, without behavioral disturbance, psychotic disturbance, mood disturbance, and anxiety; F43.10 Post-traumatic stress disorder, unspecified; F32.9 Major depressive disorder, single episode, unspecified; F43.20 Adjustment disorder, unspecified; G47.33 Obstructive sleep apnea (adult) (pediatric); H35.30 Unspecified macular degeneration; I25.10 Atherosclerotic heart disease of native coronary artery without angina pectoris; K76.0 Fatty (change of) liver, not elsewhere classified; I11.0 Hypertensive heart disease with heart failure; N28.1 Cyst of kidney, acquired; Z79.02 Long term (current) use of antithrombotics/antiplatelets; Z79.4 Long term (current) use of insulin; Z79.82 Long term (current) use of aspirin; Z87.440 Personal history of urinary (tract) infections; Z95.5 Presence of coronary angioplasty implant and graft; Z91.14 Patient's other noncompliance with medication regimen; Z87.11 Personal history of peptic ulcer disease; Z86.73 Personal history of transient ischemic attack (TIA), and cerebral infarction without residual deficits; R00.1 Bradycardia, unspecified; K46.9 Unspecified abdominal hernia without obstruction or gangrene
CPT/HCPCS: 36415; 71045-TC; 74018; 76700-TC; 76705-TC; 80048-TC; 80053-TC; 80061-TC; 80076-TC; 82150-TC; 82272-TC; 82378; 82728-TC; 82962-TC; 83540-TC; 83605-TC; 83690-TC; 83735-TC; 83880; 84100-TC; 84484-TC; 85025-TC; 85730-TC; 87081-TC; 88305-TC; 88313-TC; 88342; 93307-TC; A9541; C9113; G0378; J0360; J1815; J1940; J2270; J2405; J2704; J2765; J3475; J3490; J7050; J8597; Q9967